=== PATIENT | female | born 1990 | race African-American/Black ===

== ENCOUNTER 2017-07-25 18:54 | Emergency (ER) | payer SELFPAY ==
[2017-07-25] MEDS ORDERED: ACETAMINOPHEN 325 MG TABLET PO ONE (21:35)
--- NOTE | 2017-07-25 21:35 | ER Document Report ---
ED Medical Screen (RME) - General Chief Complaint: Abdominal Cramping Stated Complaint: ABDOMINAL CRAMPING Time Seen by Provider: 07/25/17 21:33 Mode of Arrival: Ambulatory Information source: Patient Notes: 26-year-old female presents to ED for left pelvic pain. She states her menstrual period started on Tuesday and her bleeding is much darker than usual and her pain is only on the left side. She states is the right time for her. She does have left pelvic pain to palpation. She will be treated with Tylenol in the emergency room, a urine sent for hCG and UA and then she will be seen in the main ED for a provider to do a sterile exam. I have greeted and performed a rapid initial assessment of this patient. A comprehensive ED assessment and evaluation of the patient, analysis of test results and completion of medical decision making process will be conducted by an additional ED providers. TRAVEL OUTSIDE OF THE [place] IN LAST 30 DAYS: No - Related Data Allergies/Adverse Reactions: pineapple Allergy (Severe, Verified 07/25/17 18:57) itching Sulfa (Sulfonamide Antibiotics) Allergy (Severe, Verified 07/25/17 18:57) Hives Past Medical History - Past Medical History Cardiac Medical History: Denies: Hx Coronary Artery Disease, Hx Heart Attack, Hx Hypertension Pulmonary Medical History: Denies: Hx Asthma, Hx Bronchitis, Hx COPD, Hx Pneumonia Neurological Medical History: Denies: Hx Cerebrovascular Accident, Hx Seizures Renal/ Medical History: Denies: Hx Peritoneal Dialysis Musculoskeltal Medical History: Denies Hx Arthritis Psychiatric Medical History: Reports: Hx Anxiety, Hx Bipolar Disorder, Hx Depression Past Surgical History: Reports: Hx Oral Surgery, Hx Tubal Ligation. Denies: Hx Hysterectomy - Immunizations Hx Diphtheria, Pertussis, Tetanus Vaccination: Yes Physical Exam - Vital signs Vitals: Temp Pulse Resp BP Pulse Ox 98.4 F 72 20 128/77 H 100 07/25/17 19:22 07/25/17 19:22 07/25/17 19:22 07/25/17 19:22 07/25/17 19:22 Course - Vital Signs Vital signs: Temp Pulse Resp BP Pulse Ox 98.4 F 72 20 128/77 H 100 07/25/17 19:22 07/25/17 19:22 07/25/17 19:22 07/25/17 19:22 07/25/17 19:22
[2017-07-25 22:19] LABS: APPEARANCE,URINE SLIGHTLY-CLOUDY; BILIRUBIN,URINE NEGATIVE (NEGATIVE); COLOR,URINE YELLOW; GLUCOSE, URINE NEGATIVE (NEGATIVE); KETONES,URINE NEGATIVE (NEGATIVE); LEUKOCYTE ESTERASE,URINE NEGATIVE (NEGATIVE); NITRITE,URINE NEGATIVE (NEGATIVE); PROTEIN,URINE NEGATIVE (NEGATIVE); URINE SPECIFIC GRAVITY 1.011; UROBILINOGEN,URINE NEGATIVE mg/dL (<2.0)
--- NOTE | 2017-07-25 23:05 | ER Document Report ---
ED General - General Chief Complaint: Abdominal Cramping Stated Complaint: ABDOMINAL CRAMPING Time Seen by Provider: 07/25/17 21:33 Mode of Arrival: Ambulatory TRAVEL OUTSIDE OF THE [place] IN LAST 30 DAYS: No - HPI Patient complains to provider of: Left lower quadrant abdominal pain Notes: Patient coming in for left lower quadrant abdominal pain. Patient states she is concerned about fibroids. Patient states lower and crampy. Denies any nausea vomiting diarrhea. States normal bowel movements. Denies any fevers chills. Patient states she is having some vaginal bleeding at this time may have recently started her menstrual cycle. Patient is unaware of her status. Otherwise patient is resting comfortably - Related Data Allergies/Adverse Reactions: pineapple Allergy (Severe, Verified 07/25/17 18:57) itching Sulfa (Sulfonamide Antibiotics) Allergy (Severe, Verified 07/25/17 18:57) Hives Past Medical History - General Information source: Patient - Social History Smoking Status: Never Smoker Family History: Reviewed & Not Pertinent Patient has suicidal ideation: No Patient has homicidal ideation: No - Past Medical History Cardiac Medical History: Denies: Hx Coronary Artery Disease, Hx Heart Attack, Hx Hypertension Pulmonary Medical History: Denies: Hx Asthma, Hx Bronchitis, Hx COPD, Hx Pneumonia Neurological Medical History: Denies: Hx Cerebrovascular Accident, Hx Seizures Renal/ Medical History: Denies: Hx Peritoneal Dialysis Musculoskeltal Medical History: Denies Hx Arthritis Psychiatric Medical History: Reports: Hx Anxiety, Hx Bipolar Disorder, Hx Depression Past Surgical History: Reports: Hx Oral Surgery, Hx Tubal Ligation. Denies: Hx Hysterectomy - Immunizations Hx Diphtheria, Pertussis, Tetanus Vaccination: Yes Review of Systems - Review of Systems Constitutional: No symptoms reported EENT: No symptoms reported Cardiovascular: No symptoms reported Respiratory: No symptoms reported Gastrointestinal: Abdominal pain Genitourinary: No symptoms reported Female Genitourinary: No symptoms reported Musculoskeletal: No symptoms reported Skin: No symptoms reported Hematologic/Lymphatic: No symptoms reported Neurological/Psychological: No symptoms reported -: Yes All other systems reviewed and negative Physical Exam - Vital signs Vitals: Temp Pulse Resp BP Pulse Ox 98.4 F 72 20 128/77 H 100 07/25/17 19:21 07/25/17 19:21 07/25/17 19:21 07/25/17 19:21 07/25/17 19:21 Interpretation: Normal - General General appearance: Appears well, Alert - HEENT Head: Normocephalic, Atraumatic Eyes: Normal Pupils: PERRL - Respiratory Respiratory status: No respiratory distress Chest status: Nontender Breath sounds: Normal Chest palpation: Normal - Cardiovascular Rhythm: Regular Heart sounds: Normal auscultation Murmur: No - Abdominal Inspection: Normal, Obese Distension: No distension Bowel sounds: Normal Tenderness: Nontender Organomegaly: No organomegaly - Back Back: Normal, Nontender - Extremities General upper extremity: Normal inspection, Nontender, Normal color, Normal ROM , Normal temperature General lower extremity: Normal inspection, Nontender, Normal color, Normal ROM , Normal temperature, Normal weight bearing. No: Jason's sign - Neurological Neuro grossly intact: Yes Cognition: Normal Orientation: AAOx4 Clemente Coma Scale Eye Opening: Spontaneous Clemente Coma Scale Verbal: Oriented Clemente Coma Scale Motor: Obeys Commands Clemente Coma Scale Total: 15 Speech: Normal Motor strength normal: LUE, RUE, LLE, RLE Sensory: Normal - Psychological Associated symptoms: Normal affect, Normal mood - Skin Skin Temperature: Warm Skin Moisture: Dry Skin Color: Normal Course - Re-evaluation Re-evalutation: 07/26/17 01:54 The patient presents with abdominal pain without signs of peritonitis or other life-threatening or serious etiology. The patient appears stable for discharge and has been instructed to return immediately if the symptoms worsen in any way , or in 8-12hr if not improved for re-evaluation. The patient has been instructed to return if the symptoms worsen or change in any way. Laboratory studies did not show any signs of infection or . Examination of abdomen is benign. Soft no guarding or rebound no signs of acute infection did not suspect diverticulosis ectopic intra-abdominal abscess ovarian torsion as of the patient looks very well explained the patient that because her pain is more lateral than I do not suspect a uterine issue at this time no fibroids however I did offer the patient to have an ultrasound patient states that she would rather try to follow-up with outpatient [facility] [employer] also follow-up with [facility] for pelvic examination as well. Encouraged patient to use Tylenol Motrin for pain control patient was discharged 07/26/17 01:55 07/26/17 01:56 - Vital Signs Vital signs: Temp Pulse Resp BP Pulse Ox 97.7 F 85 20 104/57 L 98 07/25/17 23:29 07/25/17 23:29 07/25/17 19:22 07/25/17 23:29 07/25/17 23:29 - Laboratory Laboratory results interpreted by me: 07/25/17 21:45 Urine Blood LARGE H Discharge - Discharge Clinical Impression: Abdominal pain Qualifiers: Abdominal location: lower abdomen, unspecified Qualified Code(s): R10.30 - Lower abdominal pain, unspecified Condition: Good Disposition: HOME, SELF-CARE Instructions: Abdominal Pain ([facility]), [facility], Ovarian Cyst ([facility]) Additional Instructions: Your physical examination is benign and do not have a serious reason for your lower abdominal pain. Her laboratory studies showed no signs of urinary tract infection also does not show any signs of . Please follow-up with your primary care physician I will give our hospice social worker your information so we can establish you with [facility] care. Recommend taking Tylenol and Motrin for pain control. Prescriptions: Ibuprofen [Motrin 600 Mg Tablet] 600 mg PO TID #30 tablet Forms: Return to Work
[2017-07-25 23:33] VITALS: BP 104/57
== END 2017-07-26 00:04 | disposition home or self-care (01) ==
LOC: ER 18:54
DX: R10.32 Left lower quadrant pain (principal)
CPT/HCPCS: 81001; 81025; 99284